=== PATIENT | female | born 1955 | race Caucasian/White ===

== ENCOUNTER 2022-01-05 09:25 | Outpatient (CLI) | payer MEDICARE | END 2022-01-05 09:26 | disposition home or self-care (01) | LOC: BICMRI 09:25 | PROVIDERS: ATTEND Specialist | DX: C50.919 Malignant neoplasm of unspecified site of unspecified female breast (principal) | CPT/HCPCS: 82565; C8908; A9577 ==

== ENCOUNTER 2022-02-04 10:48 | Outpatient (CLI) | payer MEDICARE, BC ==
[2022-02-04 11:44] LABS: #Basophils 0.1 10x3/uL (0.0-0.2); #Eosinphils 0.2 10x3/uL (0.0-0.5); #Monocytes 0.5 10x3/uL (0.0-1.1); #Neutrophils 2.4 10x3/uL (1.5-8.4); %Lymphocytes 32.7 % (18.0-47.0); %Monocytes 10.2 % (0.0-10.0); %Neutrophils 50.9 % (40.0-75.0); Hemoglobin 12.2 g/dL (12.0-15.5); Mean Corpuscular HGB CONC 33.2 g/dL (32.0-36.0); Mean Corpuscular Hemoglobin 30.5 pg (27.0-33.0); Mean Corpuscular Volume 91.8 fl (81.6-98.3); Mean Platelet Volume 9.7 fl (7.4-10.4); Platelet Count 304 10x3/uL (150-450); RBC Distribution Width 14.6 % (11.5-14.5); White Blood Cell (WBC) Count 4.8 10x3/uL (3.5-10.5)
[2022-02-04 12:06] LABS: Anion Gap 11 mmol/L (10-20); BUN (Urea Nitrogen) 15 mg/dL (9.8-20.1); Calc. Creatinine Clearance 0 mL/min (70-130); Calcium 9.8 mg/dL (7.8-10.44); Carbon Dioxide 25 mmol/L (23-31); Chloride 108 mmol/L (98-107); Estimated GFR 58; Glucose 73 mg/dL (80-115); Potassium 4.4 mmol/L (3.5-5.1); Sodium 140 mmol/L (136-145)
== END 2022-02-04 10:49 | disposition home or self-care (01) ==
LOC: LABBT 10:48
PROVIDERS: ATTEND Specialist
DX: Z01.812 Encounter for preprocedural laboratory examination (principal); Z20.822 Contact with and (suspected) exposure to COVID-19
CPT/HCPCS: 80048; 85025; 87811

== ENCOUNTER 2022-04-08 12:58 | Outpatient (CLI) | payer MEDICARE, BC | END 2022-04-08 12:59 | disposition home or self-care (01) | LOC: LABBT 12:58 | PROVIDERS: ATTEND Plastic Surgery | DX: Z20.822 Contact with and (suspected) exposure to COVID-19 (principal) | CPT/HCPCS: 87811 ==

== ENCOUNTER 2022-04-13 09:01 | Day surgery (SDC) | payer MEDICARE, BC ==
[2022-04-10 10:45] VITALS: BMI 21.7
[2022-04-13] MEDS ORDERED: CEFAZOLIN 2 GM VIAL ONE (10:04)
[2022-04-13] MEDS ORDERED: Lidocaine 1% MPF 2 ML VIAL ONE ×2 (10:04→10:30)
[2022-04-13] MEDS ORDERED: Sodium Chloride 0.9% 100 ML ONE (10:04)
[2022-04-13] MEDS ORDERED: Heparin 5,000 UNITS/ML VIAL ONE ×2 (10:04→10:30)
[2022-04-13] MEDS ORDERED: Bupivacaine 0.25% HCL 30 ML VIAL ONE (10:40)
[2022-04-13] MEDS ORDERED: Maxitrol 0.1% Opth Oint 3.5 GM TUBE ONE (10:40)
[2022-04-13] MEDS ORDERED: Gentamicin 80 MG/2 ML VIAL ONE (10:40)
[2022-04-13] MEDS ORDERED: Neomycin-Polymyxin 1 ML AMP ONE (10:41)
[2022-04-13] MEDS ORDERED: fentaNYL Citrate/PF 100 MCG/2 ML SYRINGE ONE (10:43)
[2022-04-13] MEDS ORDERED: Famotidine/PF 20 mg/2ml Vial ONE (10:43)
[2022-04-13] MEDS ORDERED: Ketorolac Tromethamine 30 MG/ML VIAL ONE (10:58)
[2022-04-13] MEDS ORDERED: Metoclopramide HCl 10 MG/2 ML VIAL ONE (10:58)
[2022-04-13] MEDS ORDERED: PROPOFOL 200 MG/20 ML VIAL ONE (10:58)
[2022-04-13] MEDS ORDERED: Dexamethasone 20 MG/5 ML VIAL ONE (10:58)
[2022-04-13] MEDS ORDERED: Ondansetron PF 4 MG/2 ML Vial ONE (10:58)
[2022-04-13] MEDS ORDERED: ePHEDrine 50 MG/ML VIAL ONE (10:58)
[2022-04-13] MEDS ORDERED: PHENYLEPHRINE-NS 100 MCG/ML 10 ML SYRINGE ONE (10:58)
[2022-04-13] MEDS ORDERED: EPINEPHrine 1 MG/ML AMP ONE (12:47)
[2022-04-13] MEDS ORDERED: HYDROcodone/Acetaminophen 5/325 mg Tablet ONE (14:08)
== END 2022-04-13 14:45 | disposition home or self-care (01) ==
LOC: SDC 09:01
PROVIDERS: ATTEND Plastic Surgery
PROC: 0H0V0JZ Alteration of Bilateral Breast with Synthetic Substitute, Open Approach (ICD-10-PCS; principal; 2022-04-13)
DX: Z42.1 Encounter for breast reconstruction following mastectomy (principal); J45.909 Unspecified asthma, uncomplicated; Z85.3 Personal history of malignant neoplasm of breast; Z79.811 Long term (current) use of aromatase inhibitors; Z79.899 Other long term (current) drug therapy; Z91.048 Other nonmedicinal substance allergy status
CPT/HCPCS: J0171; J0690; J1580; J1644; J3370; J3490; S0020; S0028

== ENCOUNTER 2025-03-22 14:03 | Outpatient (CLI) | payer MEDICARE, BC | END 2025-03-22 14:04 | disposition home or self-care (01) | LOC: SCSBT 14:03 | PROVIDERS: ATTEND Internal Medicine Hematology & Oncology | DX: M85.851 Other specified disorders of bone density and structure, right thigh (principal); M85.852 Other specified disorders of bone density and structure, left thigh; C50.811 Malignant neoplasm of overlapping sites of right female breast; Z79.899 Other long term (current) drug therapy | CPT/HCPCS: 77080 ==

== ENCOUNTER 2025-05-30 07:45 | Outpatient (CLI) | payer MEDICARE, BC | END 2025-05-30 07:46 | disposition home or self-care (01) | LOC: SCSULT 07:45 | PROVIDERS: ATTEND Physician Assistant Medical | DX: K82.4 Cholesterolosis of gallbladder (principal); R19.7 Diarrhea, unspecified; K76.89 Other specified diseases of liver | CPT/HCPCS: 76705 ==